=== PATIENT | male | born 1970 | race American Indian/Alaskan Native ===

== ENCOUNTER 2020-04-16 13:02 | Emergency (ER) | payer SELFPAY ==
--- NOTE | 2020-04-16 13:36 | Emergency Department Report ---
Blank Doc - Documentation Documentation: 49-year-old male that presents with HTN and headaches. Stated has not been ta maik b/p medication for 1 year. This initial assessment/diagnostic orders/clinical plan/treatment(s) is/are subject to change based on patient's health status, clinical progression and re- assessment by fellow clinical providers in the ED. Further treatment and workup at subsequent clinical providers discretion. Patient/guardians urged not to elope from the ED as their condition may be serious if not clinically assessed and managed. Initial orders include: 1- Patient sent to [facility] for further evaluation and treatment 2- CT head 3- labs r/o HTN emergency
--- NOTE | 2020-04-16 14:23 | XRay Report ---
CHEST 2 VIEWS INDICATION: Chest Pain. COMPARISON: None. FINDINGS: Support devices: None. Heart: Within normal limits. Lungs/Pleura: No acute air space or interstitial disease. No significant pleural effusion. IMPRESSION: No acute findings. Signer Name: Alvino Cerna MD Signed: 04/16/2020 2:19 PM Workstation Name: [id number]
[2020-04-16 14:26] LABS: Basophils # (Auto) 0.1 K/mm3 (0.0-0.1); Basophils % (Auto) 0.7 % (0.0-1.8); Eosinophils # (Auto) 0.1 K/mm3 (0.0-0.4); Eosinophils % (Auto) 0.9 % (0.0-4.3); Hematocrit 42.6 % (35.5-45.6); Hemoglobin 14.4 gm/dl (11.8-15.2); Lymphocytes # (Auto) 2.6 K/mm3 (1.2-5.4); Lymphocytes % (Auto) 25.8 % (13.4-35.0); Mean Corpuscular HGB Conc 34 % (32-34); Mean Corpuscular Volume 95 fl (84-94); Monocytes # (Auto) 0.7 K/mm3 (0.0-0.8); Monocytes % (Auto) 6.5 % (0.0-7.3); Platelet Count 286 K/mm3 (140-440); Red Blood Count 4.49 M/mm3 (3.65-5.03); Red Cell Distribution Width 13.8 % (13.2-15.2)
[2020-04-16 14:51] LABS: Alanine Aminotransferase 8 units/L (7-56); Albumin 4.4 g/dL (3.9-5); BUN/Creatinine Ratio 9; Blood Urea Nitrogen 12 mg/dL (9-20); Calcium 10.1 mg/dL (8.4-10.2); Hemolysis Index 6
--- NOTE | 2020-04-16 14:53 | Cat Scan Report ---
NONENHANCED CT SCAN OF THE HEAD: INDICATION / CLINICAL INFORMATION: 49 years Male; headache w/ HTN. TECHNIQUE: Routine CT head without contrast. All CT scans at this location are performed using CT dos e reduction for ALARA by means of automated exposure control. COMPARISON: None. FINDINGS: BRAIN / INTRACRANIAL CONTENTS: No acute hemorrhage, mass effect, midline shift, hydrocephalus, or acu te, large territorial infarct. No chronic infarct or focal atrophy. Normal brain volume and ventricul ar/sulcal size for age. No significant white matter abnormality. CRANIOCERVICAL JUNCTION: No significant abnormality. ORBITS: No significant abnormality of visualized orbits. SINUSES / MASTOIDS: No significant abnormality of the visualized paranasal sinuses or mastoid air gladis ls. ADDITIONAL FINDINGS: None. IMPRESSION: No focal parenchymal lesion Signer Name: Char Zaragoza MD Signed: 04/16/2020 2:48 PM Workstation Name: [id number]
[2020-04-16 15:25] LABS: Bilirubin,Urine NEG (Negative); Blood,Urine MOD (Negative); Color,Urine Yellow (Yellow); Mucus,Urine FEW /HPF; Protein,Urine <15 mg/dL mg/dL (Negative)
--- NOTE | 2020-04-16 23:41 | Emergency Department Report ---
HPI - General Chief Complaint: High BP Time Seen by Provider: 04/16/20 13:31 - HPI HPI: This is a 49-year-old -[place] male who presents to the emergency department with complaint of elevated and uncontrolled blood pressure. Patient says that he has not taken any blood pressure medications in over a year because the previous medication used to give him issues with erectile dysfunction. When asked what brings the patient into the emergency department today, the patient says that he was "shaking" and also says that he has been having a headache since this morning. The headache is frontal, currently 8 out of 10 in intensity, and associated with some sensitivity to light. He denies any numbness or paresthesias, weakness, slurred speech, or any other neurological deficits. The patient is a tobacco smoker. He also drinks alcohol moderately but denies any alcohol dependence. He tried some Excedrin tension for his headache without much relief. He denies any chest pain, shortness of breath, fever, blurry vision, abdominal or back pain. ED Past Medical Hx - Past Medical History Hx Hypertension: Yes - Medications Home Medications: Home Medications Medication Instructions Recorded Confirmed Last Taken Type amLODIPine 5 mg PO DAILY #30 tab 04/17/20 Unknown Rx ED Review of Systems ROS: Stated complaint: HIGH BLOOD PRESSURE/POSSIBLE SEIZURE Other details as noted in HPI Comment: All other systems reviewed and negative Constitutional: denies: chills, fever Eyes: denies: eye discharge, vision change ENT: denies: ear pain, throat pain Respiratory: denies: cough, shortness of breath Cardiovascular: denies: chest pain, palpitations Gastrointestinal: denies: abdominal pain, vomiting Genitourinary: denies: urgency, dysuria Musculoskeletal: denies: back pain, arthralgia Skin: denies: rash, lesions Neurological: headache. denies: weakness Physical Exam - Physical Exam Vital Signs: Vital Signs 04/16/20 13:36 Temperature 97.9 F Pulse Rate 96 H Respiratory 20 Rate Blood Pressure 188/122 O2 Sat by Pulse 98 Oximetry Physical Exam: GENERAL: The patient is well-developed well-nourished. HENT: Normocephalic. Atraumatic. Patient has moist mucous membranes. EYES: Extraocular motions are intact. Pupils equal reactive to light bilaterally. No nystagmus. NECK: Supple. Trachea is midline. CHEST/LUNGS: Clear to auscultation. There is no respiratory distress noted. HEART/CARDIOVASCULAR: Regular. There is no tachycardia. There is no murmur. ABDOMEN: Abdomen is soft, nontender. Patient has normal bowel sounds. SKIN: Skin is warm and dry. NEURO: The patient is awake, alert, and oriented. The patient is cooperative. The patient has no focal neurologic deficits. Normal speech. Cranial nerves II through XII grossly intact. No pronator drift. No dysmetria. Mild distal bilateral upper extremity tremor. MUSCULOSKELETAL: There is no tenderness or deformity. There is no limitation range of motion. ED Course Vital Signs 04/16/20 13:36 Temperature 97.9 F Pulse Rate 96 H Respiratory 20 Rate Blood Pressure 188/122 O2 Sat by Pulse 98 Oximetry ED Medical Decision Making - Lab Data Result diagrams: 04/16/20 13:58 04/16/20 13:58 - Radiology Data Radiology results: report reviewed, image reviewed interpreted by me: Chest x-ray does not show any acute process. There are no pleural effusions, obvious pneumonia and there is no pneumothorax. No significant cardiomegaly. NONENHANCED CT SCAN OF THE HEAD: INDICATION / CLINICAL INFORMATION: 49 years Male; headache w/ HTN. TECHNIQUE: Routine CT head without contrast. All CT scans at this location are performed using CT dose reduction for ALARA by means of automated exposure control. COMPARISON: None. FINDINGS: BRAIN / INTRACRANIAL CONTENTS: No acute hemorrhage, mass effect, midline shift, hydrocephalus, or acute, large territorial infarct. No chronic infarct or focal atrophy. Normal brain volume and ventricular/sulcal size for age. No significant white matter abnormality. CRANIOCERVICAL JUNCTION: No significant abnormality. ORBITS: No significant abnormality of visualized orbits. SINUSES / MASTOIDS: No significant abnormality of the visualized paranasal sinuses or mastoid air cells. ADDITIONAL FINDINGS: None. IMPRESSION: No focal parenchymal lesion - Medical Decision Making This patient presents to the emergency department with complaint of elevated and uncontrolled blood pressure. He decided to come in to be seen because he started having some "shaking" and he has been having a frontal headache since this morning. On examination the patient does not have any focal, motor or sensory deficits and his cranial nerves are intact. He does have a slight bilateral distal upper extremity tremor, but only when he holds his arms out. The patient is a 0 on the NIH stroke scale. He had a CT scan of the head without contrast through triage that did not show any acute process including any intracranial bleed or large territorial infarct. Chest x-ray does not show any pneumonia, pleural effusions, pneumothorax, focal consolidation, or any other acute process. The patient's labs have been mostly unremarkable including CBC, metabolic panel, troponin, and urinalysis. The patient's blood pressure came down to a more reasonable level and he did not require any antihypertensive medication within the emergency department. He was given a dose of Toradol for his headache which did appear to improve his symptoms as he was seen sleeping on the gurney. Patient appears safe for discharge home at this time. He has been instructed to follow-up with a primary care physician and has been given multiple outpatient referrals. We discussed smoking cessation. We discussed staying away from foods that are high in salt and caffeinated products, as well as keeping a blood pressure log. The patient will be started on a medium dose of amlodipine/Norvas c. He will return to the emergency department with any worsening of his symptoms or with any acute distress. Critical Care Time: No Critical care attestation.: If time is entered above; I have spent that time in minutes in the direct care of this critically ill patient, excluding procedure time. ED Disposition Clinical Impression: Tobacco use, Noncompliance with medication regimen Hypertension Qualifiers: Hypertension type: essential hypertension Qualified Code(s): I10 - Essential (primary) hypertension Headache Qualifiers: Headache type: unspecified Headache chronicity pattern: unspecified pattern Intractability: not intractable Qualified Code(s): R51.9 - Headache, unspecified Disposition: DC-01 TO HOME OR SELFCARE Is pt being admited?: No Condition: Stable Instructions: General Headache Without Cause, Steps to Quit Smoking, Hypertension, Adult, Hypertension (ED) Additional Instructions: Please follow-up with a primary care physician in the next few days. I am starting you on a blood pressure medication called Norvasc/amlodipine. This medication is taken once per day, usually in the morning. Try to stay away from foods that are high in salt and caffeinated products. Please quit smoking. Keep a blood pressure log. Return to the emergency department with any worsening of your symptoms, new or concerning symptoms not addressed during this current emergency department visit, or with any acute distress. Prescriptions: amLODIPine 5 mg PO DAILY #30 tab Referrals: FARZAD PINEDA MD [Staff Physician] - 3-5 Days ROSALIE BETH MD [Staff Physician] - 3-5 Days [facility] [Provider Group] - 3-5 Days Time of Disposition: 00:46
[2020-04-16] MEDS ORDERED: KETOROLAC 30 MG/1 ML INJ IM ONE (23:50)
[2020-04-17 01:23] VITALS: BP 158/102
== END 2020-04-17 01:08 | disposition home or self-care (01) ==
LOC: ED 13:02
DX: I10 Essential (primary) hypertension (principal); Z91.14 Patient's other noncompliance with medication regimen; Z79.899 Other long term (current) drug therapy; Z72.0 Tobacco use
CPT/HCPCS: 36415; 70450; 71046; 80053; 81001; 84484; 85025; 96372; 99284; J1885